=== PATIENT | female | born 1970 | race Caucasian/White ===

== ENCOUNTER 2016-11-23 09:30 | Emergency (ER) | payer BC ==
[2016-11-23 09:48] VITALS: BP 113/75
[2016-11-23] MEDS ORDERED: Fluorescein Sodium TOPICAL* 1 MG TEST ONE (11:03)
[2016-11-23] MEDS ORDERED: BSS OPTH.SOL* BTL ONE (11:04)
--- NOTE | 2016-11-23 11:38 | UC ---
Fernando Banks Alok, scribed for Chelsie Dinero MD on 11/23/16 at 1108 . Eye Complaint HPI - HPI Summary HPI Summary: 46 y/o female presents to the accompanied by her with right eye pain and erythema starting yesterday. Pt states that yesterday morning at about 1030 she first rubbed her eye after cutting onions followed by a progressive pain and erythema noticed at 1800 yesterday afternoon. Pt states she developed light sensitivity through the day. The patient states that this eye pain radiates toward her right cheek- described as a soreness especially when moving her eye, and adds photophobia and vision blurriness across all rollins of vision in the right eye. Pt states feels like there is a "smear of something" over her eye affecting her vision. Pt states since yesterday she noted her right eye has not been dilating the same as the left. States today she noted drainage from both eyes but attributes to her allergies. Her symptoms improve with darkness, sunglasses, and being indoors. The pt normally wears contacts but has not been wearing them today. No trauma. Pt states has had increased stressed and is spending 10+ hours a day looking at computer working on her Master's thesis. Pt denies headache, ear pain, sore throat, dyspnea, or direct trauma. 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 Her last MRI was 1.5 years ago and showed no signs of the neruoma recurrence. She also states that she may have thyroid issues but isn't sure. Pt denies chance of and drinks ETOH occasionally. Allergies include Cephalosporins and Penicillins.Pt states she took Ibuprofen before bed and woke up with the same condition today although less discomfort. Patient medication reviewed this visit. - History of Current Complaint Chief Complaint: UCEye Stated Complaint: EYE ISSUE Time Seen by Provider: 11/23/16 10:42 Hx Obtained From: Patient, Family/Fagoter Hx Last Menstrual Period: 45 days ?: No Onset/Duration: Gradual Onset, Lasting Days, Still Present Timing: Constant Severity Initially: Moderate Severity Currently: Moderate Pain Intensity: 2 Pain Scale Used: 0-10 Numeric Character: Dull Aggravating Factor(s): Light, Contact Lens, Ultraviolet Exposure Alleviating Factor(s): Darkness Associated Signs And Symptoms: Positive: Photophobia, Drainage (Clear), Vision Impairment Right - Allergies/Home Medications Allergies/Adverse Reactions: Allergies Allergy/AdvReac Type Severity Reaction Status Date / Time Cephalosporins Allergy Severe Anaphylatic Verified 11/23/16 09:48 Shock Latex Allergy Severe Anaphylatic Verified 11/23/16 09:48 Shock Penicillins [PCN] Allergy Severe Anaphylatic Verified 11/23/16 09:48 Shock PMH/Surg Hx/FS Hx/Imm Hx Previously Healthy: Yes Endocrine History Of: Denies: Diabetes, Thyroid Disease Cardiovascular History Of: Denies: Cardiac Disorders, Hypertension Respiratory History Of: Denies: COPD, Asthma GI/ History Of: Denies: Ulcer Cancer History Of: Denies: Breast Cancer - Surgical History Surgical History: None - Family History Known Family History: Positive: Other - Yes- Breast CA - Social History Lives: With Family Alcohol Use: Occasionally Substance Use Type: None Smoking Status (MU): Never Smoked Tobacco Review of Systems Constitutional: Negative Skin: Negative Eyes: Blurred Vision, Drainage, Eye Redness, Photophobia ENT: Negative Respiratory: Negative Cardiovascular: Negative Gastrointestinal: Negative Genitourinary: Negative Motor: Negative Neurovascular: Negative Musculoskeletal: Negative Neurological: Other - right sided facial pain near to right eye Psychological: Negative All Other Systems Reviewed And Are Negative: Yes Physical Exam Triage Information Reviewed: Yes Appearance: Well-Appearing, No Pain Distress, Well-Nourished Vital Signs: Initial Vital Signs Temp 98.4 F 11/23/16 09:43 Pulse 76 11/23/16 09:43 Resp 18 11/23/16 09:43 BP 113/75 11/23/16 09:43 Pulse Ox 100 11/23/16 09:43 Vital Signs Reviewed: Yes Eyes: Positive: Conjunctiva Clear, Conjunctiva Inflamed, Discharge, Other: - PRLLA, left pupil slightly smaller and slower to react EOM intact and full No pain with palpation of orbital rim + injected sclera + inflammed conjunctive + scant yellow d/c No fluorescene uptake mild photophobia ENT: Positive: Other: - pt with hearing assist device left ear TM x2 clear - no fluid Dental Exam: Normal Neck exam: Normal Neck: Positive: Supple, Nontender Respiratory Exam: Normal Cardiovascular Exam: Normal Cardiovascular: Positive: RRR, No Murmur, Other: - no bruits b/l Abdominal Exam: Normal Abdomen Description: Positive: Nontender, No Organomegaly, Soft Bowel Sounds: Positive: Present Musculoskeletal Exam: Normal Neurological Exam: Normal Neurological: Positive: Alert, Muscle Tone Normal, Fatigued Psychological Exam: Normal Skin Exam: Normal Eye Complaint Course/Dx - Course Course Of Treatment: pt with left eye complaints - photophobia, sluggish pupil, injection and discomfort with EOM since yesterday. PT with h/o acoustic neuroma of the other eye. visual acuity noted. suspect early conjunctivitis, but need to consider glaucoma and vascular processes. Spoke with Dr. Forman's office - okay to send pt directly for eval. pt and so comfortable and in agreement with plan - Differential Dx/Diagnosis Provider Diagnoses: eye pain, eye injection Discharge - Discharge Plan Condition: Stable Disposition: OTHER Discharge Disposition Comment: Dr. Forman's office - discharged from to office Patient Education Materials: Blurred Vision (ED), Eye Pain (ED) Referrals: Tony Daley MD [Primary Care Provider] - Leon Forman MD [Medical Doctor] - Additional Instructions: - Go directly to Dr. Forman's office - the ophthomolist - his office is expecting you - wear sunglasses for protection from light - Okay to take Tylenol or ibuprofen as needed The documentation as recorded by the Fernando dewey Alok accurately reflects the service I personally performed and the decisions made by me, Chelsie Dinero MD.
== END 2016-11-23 11:21 ==
LOC: UCEAST 09:30
DX: H57.12 Ocular pain, left eye (principal); Z88.0 Allergy status to penicillin; Z91.040 Latex allergy status
CPT/HCPCS: 99201; A9270-GY; G0463

== ENCOUNTER 2017-09-02 08:49 | Emergency (ER) | payer BC ==
[2017-09-02 09:16] VITALS: BP 140/68
--- NOTE | 2017-09-03 18:47 | UC ---
Poli Banks Nilda, scribed for Sterling Feldman MD on 09/02/17 at 0930 . FLU HPI - HPI Summary HPI Summary: This patient is a 47 year old F [place] [facility] a chief complaint of constant flu like symptoms for the past few days. The patient rates the pain 0/ 10 in severity. Symptoms aggravated and alleviated by nothing. Patient reports congestion, bilat ear fullness, mild sore throat, painful lymph nodes, body aches, and fatigue. Flu vaccine UTD. Pt states recent sick contacts at work. - History of Current Complaint Chief Complaint: UCGeneralIllness Stated Complaint: FEVER, BODYACHES Time Seen by Provider: 09/02/17 09:21 Hx Obtained From: Patient Hx Last Menstrual Period: Intermitent- Unknown Onset/Duration: Sudden Onset, Lasting Days Severity Currently: Mild Pain Intensity: 0 Pain Scale Used: 0-10 Numeric Associated Signs & Symptoms: Positive: Sore Throat - Allergy/Home Medications Allergies/Adverse Reactions: Allergies Allergy/AdvReac Type Severity Reaction Status Date / Time MS Cephalosporins Allergy Severe Anaphylatic Verified 09/02/17 09:16 [Cephalosporins] Shock MS Latex [Latex] Allergy Severe Anaphylatic Verified 09/02/17 09:16 Shock MS Penicillins [PCN] Allergy Severe Anaphylatic Verified 09/02/17 09:16 Shock MS Bee Venom [Bee Venom] Allergy Anaphylatic Verified 09/02/17 09:16 Shock Home Medications: Home Medications [id number] [Anita-Bisbee Plus Severe 10-12.5-20-650 mg] 1 pow PO TID PRN 09/02/17 [History Confirmed 09/02/17] PMH/Surg Hx/FS Hx/Imm Hx Neurological History: Other Other Neurological History: 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 MENISCUS REPAIR LEFT KNEE - Family History Known Family History: Positive: Hypertension, Diabetes, Other - Yes- Breast CA, HLD - Social History Alcohol Use: Weekly Substance Use Type: None Smoking Status (MU): Never Smoked Tobacco Review of Systems Constitutional: Fatigue ENT: Sore Throat, Ear Ache - bilat fullness, Sinus Congestion, Other - painful lymph nodes Musculoskeletal: Myalgia All Other Systems Reviewed And Are Negative: Yes Physical Exam Triage Information Reviewed: Yes Vital Signs: Initial Vital Signs Temp 98.4 F 09/02/17 09:11 Pulse 91 09/02/17 09:11 Resp 16 09/02/17 09:11 BP 140/68 09/02/17 09:11 Pulse Ox 100 09/02/17 09:11 Vital Signs Reviewed: Yes - Additional Comments VITAL SIGNS: Reviewed. GENERAL: Patient is a well developed and nourished F who is lying comfortable in the stretcher. Patient is not in any acute respiratory distress. HEAD AND FACE: Normocephalic EYES: PERRLA, EOMI x 2. EARS: Hearing grossly intact. MOUTH: Pharyngeal erythema NECK: Supple, trachea is midline, no adenopathy, no JVD, no carotid bruit. CHEST: Symmetric, no tenderness at palpation LUNGS: Clear to auscultation bilaterally. No wheezing or crackles. CVS: Regular rate and rhythm, S1 and S2 present, no murmurs or gallops appreciated. ABDOMEN: Soft, non-tender. Bowel sounds are normal. No abdominal abnormal pulsations. EXTREMITIES: Full ROM in all major joints, no edema, no cyanosis or clubbing. NEURO: Alert and oriented x 3. No acute neurological deficits. Speech is normal and follows commands. SKIN: Dry and warm Flu Course/Dx - Course Course Of Treatment: This patient is a 47 year old F presenting [place] [facility] with a chief complaint of constant flu like symptoms for the past few days. The patient rates the pain 0/10 in severity. Symptoms aggravated and alleviated by nothing. Patient reports congestion, bilat ear fullness, mild sore throat, painful lymph nodes, body aches, and fatigue. Flu vaccine UTD. Pt states recent sick contacts at work. Influenza A+B negative. Rapid strep negative. I discussed all the findings and test results with the patient. Pt was instructed to return to the urgent care or go to ER immediately if any of the symptoms return or worsens. Plan of care was discussed with the patient and pt understands and agrees. All questions were answered to patient satisfaction. There were no further complaints or concerns. - Differential Dx/Diagnosis Differential Diagnosis/HQI/PQRI: Bronchitis, Influenza, Upper Respiratory Infection Provider Diagnoses: URI Discharge - Discharge Plan Condition: Stable Disposition: HOME Patient Education Materials: Upper Respiratory Infection (DC) Referrals: Tony Daley MD [Primary Care Provider] - Additional Instructions: adhere to all medications Increase fluid intake wash hands at all times. The documentation as recorded by the Poli dewey Nilda accurately reflects the service I personally performed and the decisions made by Gaston casey Walter, MD.
== END 2017-09-02 10:17 | disposition home or self-care (01) ==
LOC: UCEAST 08:49
DX: J06.9 Acute upper respiratory infection, unspecified (principal); H91.92 Unspecified hearing loss, left ear; Z85.841 Personal history of malignant neoplasm of brain; Z88.0 Allergy status to penicillin; Z88.1 Allergy status to other antibiotic agents; Z91.030 Bee allergy status; Z91.040 Latex allergy status
CPT/HCPCS: 87502; 87651; 99211; G0463

== ENCOUNTER 2017-09-10 08:59 | Emergency (ER) | payer BC ==
[2017-09-10 09:10] VITALS: BP 115/80
--- NOTE | 2017-09-10 10:39 | UC ---
Ear Complaint HPI - HPI Summary HPI Summary: LEFT EAR PAIN FOR PAST FEW DAYS. PT HAS DECREASED HEARING IN LEFT EAR AT BASELINE DUE TO RADIATION FOR A BRAIN MASS. HAS HAD URI SX FOR A WEEK OR SO. DENIES FEVER. - History of Current Complaint Chief Complaint: UCEar Stated Complaint: EAR PAIN Time Seen by Provider: 09/10/17 10:36 Hx Obtained From: Patient Hx Last Menstrual Period: control Onset/Duration: Gradual Onset, Lasting Days, Still Present Severity Initially: Moderate Severity Currently: Moderate Pain Intensity: 7 Pain Scale Used: 0-10 Numeric Aggravating Factors: Nothing Alleviating Factors: OTC Meds Associated Signs/Symptoms: Positive: URI Symptoms - Allergies/Home Medications Allergies/Adverse Reactions: Allergies Allergy/AdvReac Type Severity Reaction Status Date / Time MS Cephalosporins Allergy Severe Anaphylatic Verified 09/10/17 10:48 [Cephalosporins] Shock MS Latex [Latex] Allergy Severe Anaphylatic Verified 09/10/17 10:48 Shock MS Penicillins [PCN] Allergy Severe Anaphylatic Verified 09/10/17 10:48 Shock MS Bee Venom [Bee Venom] Allergy Anaphylatic Verified 09/10/17 10:48 Shock PMH/Surg Hx/FS Hx/Imm Hx Other Cancer History: BRAIN MASS - Surgical History Surgical History: None Surgery Procedure, Year, and Place: IVF RETRIEVAL X5. MENISCUS REPAIR LEFT KNEE - Family History Known Family History: Positive: Hypertension, Diabetes, Other - Yes- Breast CA, HLD - Social History Alcohol Use: Weekly Substance Use Type: None Smoking Status (MU): Never Smoked Tobacco Review of Systems Constitutional: Negative ENT: Ear Ache Respiratory: Cough Cardiovascular: Negative Gastrointestinal: Negative All Other Systems Reviewed And Are Negative: Yes Physical Exam Triage Information Reviewed: Yes Appearance: Well-Appearing, No Pain Distress, Well-Nourished Vital Signs: Initial Vital Signs Temp 98.7 F 09/10/17 09:07 Pulse 87 09/10/17 09:07 Resp 17 09/10/17 09:07 BP 115/80 09/10/17 09:07 Pulse Ox 100 09/10/17 09:07 Vital Signs Reviewed: Yes Eyes: Positive: Conjunctiva Clear ENT: Positive: Hearing grossly normal, Pharynx normal, Other - RIGHT TM NORMAL. LEFT TM DULL, ERYTHEMATOUS, RETRACTED Neck: Positive: Supple, Nontender, No Lymphadenopathy Respiratory Exam: Normal Cardiovascular Exam: Normal Abdomen Description: Positive: Soft Musculoskeletal: Positive: No Edema Neurological: Positive: Alert Psychological: Positive: Age Appropriate Behavior Skin: Negative: rashes Ear Complaint Course/Dx - Differential Dx/Diagnosis Provider Diagnoses: LEFT AOM Discharge - Discharge Plan Condition: Stable Disposition: HOME Prescriptions: Azithromycin 500 mg PO DAILY #5 tab Patient Education Materials: Ear Infection (ED) Referrals: Tony Daley MD [Primary Care Provider] - If Needed Additional Instructions: SEEK FOLLOW-UP IF YOU ARE NOT IMPROVING EXPECTED OVER THE NEXT FEW DAYS. OTC MEDS NEEDED FOR DISCOMFORT.
[2017-09-10] MEDS ORDERED: Ibuprofen TAB* 600 MG PO ONE (10:50)
== END 2017-09-10 10:55 | disposition home or self-care (01) ==
LOC: UCEAST 08:59
DX: H66.92 Otitis media, unspecified, left ear (principal); R05 Cough; G93.89 Other specified disorders of brain; Z88.0 Allergy status to penicillin; Z88.1 Allergy status to other antibiotic agents; Z91.030 Bee allergy status; Z91.040 Latex allergy status
CPT/HCPCS: 99212; A9270-GY; G0463

== ENCOUNTER 2018-02-20 14:39 | Emergency (ER) | payer BC ==
[2018-02-20 14:57] VITALS: BP 99/64
--- NOTE | 2018-02-20 15:08 | UC ---
Ear Complaint HPI - History of Current Complaint Chief Complaint: UCEar Stated Complaint: EAR ACHE Time Seen by Provider: 02/20/18 15:02 Hx Obtained From: Patient Hx Last Menstrual Period: 02/05/18 ?: No Onset/Duration: Gradual Onset - L ear pain over past 3 days. Wears hearing aide in L ear. takes jason qd Pain Intensity: 4 Aggravating Factors: Nothing Alleviating Factors: Nothing - Allergies/Home Medications Allergies/Adverse Reactions: Allergies Allergy/AdvReac Type Severity Reaction Status Date / Time bee venom protein (honey bee) Allergy Severe Anaphylatic Verified 02/20/18 14:58 Shock Cephalosporins Allergy Severe Anaphylatic Verified 02/20/18 14:58 Shock latex Allergy Severe Anaphylatic Verified 02/20/18 14:58 Shock Penicillins Allergy Severe Anaphylatic Verified 02/20/18 14:58 Shock Home Medications: Home Medications Control 02/20/18 [History] PMH/Surg Hx/FS Hx/Imm Hx Previously Healthy: Yes - Surgical History Surgical History: None Surgery Procedure, Year, and Place: IVF RETRIEVAL X5. MENISCUS REPAIR LEFT KNEE - Family History Known Family History: Positive: Hypertension, Diabetes, Other - Yes- Breast CA, HLD - Social History Occupation: Employed Full-time Lives: With Family Alcohol Use: Weekly Substance Use Type: None Smoking Status (MU): Never Smoked Tobacco Review of Systems Constitutional: Negative Eyes: Negative ENT: Ear Ache Respiratory: Negative Cardiovascular: Negative Neurological: Negative Psychological: Negative All Other Systems Reviewed And Are Negative: Yes Physical Exam Triage Information Reviewed: Yes Appearance: Well-Appearing, No Pain Distress, Well-Nourished Vital Signs: Initial Vital Signs Temp 98.6 F 02/20/18 14:51 Pulse 69 02/20/18 14:51 Resp 29 02/20/18 14:51 BP 99/64 02/20/18 14:51 Pulse Ox 100 02/20/18 14:51 Vital Signs Reviewed: Yes Eye Exam: Normal Eyes: Positive: Conjunctiva Clear ENT: Positive: TMs normal. Negative: TM bulging, TM dull, TM red Respiratory Exam: Normal Cardiovascular Exam: Normal Psychological Exam: Normal Skin Exam: Normal Skin: Negative: rashes Ear Complaint Course/Dx - Differential Dx/Diagnosis Differential Diagnosis/HQI/PQRI: Cerumen Impaction, Foreign Body, Otitis Externa , Otitis Media Provider Diagnoses: otalgia Discharge - Sign-Out/Discharge Documenting (check all that apply): Patient Departure - Discharge Plan Condition: Good Disposition: HOME Patient Education Materials: Earache (ED) Referrals: Tony Daley MD [Primary Care Provider] - 1 Week (if no better) Additional Instructions: use sudafed (from behind the counter) continue jason can also use nasal steroid (Flonase, Nasacort) - Billing Disposition and Condition Condition: GOOD Disposition: Home
== END 2018-02-20 15:44 | disposition home or self-care (01) ==
LOC: UCEAST 14:39
DX: H92.02 Otalgia, left ear (principal); Z88.0 Allergy status to penicillin; Z88.1 Allergy status to other antibiotic agents
CPT/HCPCS: 99211; G0463

== ENCOUNTER 2019-07-11 10:59 | Emergency (ER) | payer BC ==
[2019-07-11 11:21] VITALS: BP 96/56
--- NOTE | 2019-07-11 12:05 | UC ---
UC General HPI - HPI Summary HPI Summary: RN notes - child diagnosed with " Atypical" strep on wednesday here. pt is mother and has had head congestion sinus pressure , denies fever has sore throat for one month Pleasant 49 yo female c/o mild sore throat x last month. No fever /chills / rash. No sob /cp / palpitations. No GI issues. Reviewed analysis reporting developer notes, see above. Is concerned d/t her child was recently dx'd with "atypical strep". Atypical -> neuropsychologic acute issues, which are improving with abx tx. Ms. Gutiérrez is concerned that she could be a carrier herself. - History of Current Complaint Chief Complaint: UCGeneralIllness Stated Complaint: SORE THROAT Time Seen by Provider: 07/11/19 12:04 Hx Obtained From: Patient Hx Last Menstrual Period: 06/24/19 Pain Intensity: 3 - Allergy/Home Medications Allergies/Adverse Reactions: Allergies Allergy/AdvReac Type Severity Reaction Status Date / Time bee venom protein (honey bee) Allergy Severe Anaphylatic Verified 07/11/19 11:21 Shock Cephalosporins Allergy Severe Anaphylatic Verified 07/11/19 11:21 Shock latex Allergy Severe Anaphylatic Verified 07/11/19 11:21 Shock Penicillins Allergy Severe Anaphylatic Verified 07/11/19 11:21 Shock PMH/Surg Hx/FS Hx/Imm Hx Previously Healthy: Yes - Surgical History Surgical History: None Surgery Procedure, Year, and Place: IVF RETRIEVAL X5. MENISCUS REPAIR LEFT KNEE - Family History Known Family History: Positive: Hypertension, Diabetes, Other - Yes- Breast CA, HLD - Social History Alcohol Use: Occasionally Substance Use Type: None Smoking Status (MU): Never Smoked Tobacco Review of Systems All Other Systems Reviewed And Are Negative: Yes Constitutional: Positive: Negative Skin: Positive: Negative Eyes: Positive: Negative ENT: Positive: Sore Throat, Sinus Congestion, Other - see hpi Respiratory: Positive: Other - see hpi Cardiovascular: Positive: Negative Gastrointestinal: Positive: Negative Genitourinary: Positive: Negative Motor: Positive: Negative Neurovascular: Positive: Negative Musculoskeletal: Positive: Negative Neurological: Positive: Negative Psychological: Positive: Negative Is Patient Immunocompromised?: No Physical Exam Triage Information Reviewed: Yes Appearance: Well-Appearing, Well-Nourished Vital Signs: Initial Vital Signs Temp 99.6 F 07/11/19 11:17 Pulse 77 07/11/19 11:17 Resp 18 07/11/19 11:17 BP 96/56 07/11/19 11:17 Pulse Ox 100 07/11/19 11:17 Vital Signs Reviewed: Yes Eye Exam: Normal ENT: Positive: Pharyngeal erythema - mild post pharyng redness, no sores / exudates. uvula midline., Nasal congestion Neck exam: Normal Neck: Positive: Supple, Nontender, No Lymphadenopathy Respiratory Exam: Normal Respiratory: Positive: Chest non-tender, Lungs clear, Normal breath sounds, No respiratory distress, No accessory muscle use Cardiovascular Exam: Normal Cardiovascular: Positive: RRR, No Murmur, Pulses Normal, Brisk Capillary Refill Abdominal Exam: Normal Abdomen Description: Positive: Nontender Musculoskeletal Exam: Normal - gait steady, moves x 4 ext's Neurological Exam: Normal - grossly nonfocal Psychological Exam: Normal - nad Skin Exam: Normal - nondiaphoretic. no visible or reported rash Course/Dx - Course Course Of Treatment: RST neg. Cx sent. Reviewed coa / tx plan. + pcn allergy. + cephalosporin allergy. Has taken azithromycin, but a very long time. Suspicious for strep, edis with household member recently + with sign sx. Escribed azithromycin (strep dose), she will consider, but likely wait until cx returns. Aware to seek medical tx for worse or new sx. - Diagnoses Provider Diagnosis: Sore throat Discharge ED - Sign-Out/Discharge Documenting (check all that apply): Patient Departure All imaging exams completed and their final reports reviewed: No Studies - Discharge Plan Condition: Stable Disposition: HOME Prescriptions: Azithromycin TAB* [Zithromax TAB (Z-NELSON) 250 mg #6 tabs] 500 mg PO DAILY #10 tab Patient Education Materials: Pharyngitis (ED) Referrals: Tony Daley MD [Primary Care Provider] - Additional Instructions: Strep throat test in the lab. Hydrate. Yogurt and / or probiotic daily. Follow up primary care physician, per routine. Please seek medical attention for worse or new problems in the meantime. - Billing Disposition and Condition Condition: STABLE Disposition: Home
== END 2019-07-11 12:49 | disposition home or self-care (01) ==
LOC: UCEAST 10:59
DX: J02.9 Acute pharyngitis, unspecified (principal); R09.81 Nasal congestion; Z88.0 Allergy status to penicillin; Z88.1 Allergy status to other antibiotic agents; Z91.030 Bee allergy status; Z91.040 Latex allergy status
CPT/HCPCS: 87070; 87651; 99212; G0463